=== PATIENT | female | born 1985 | race Hispanic/Latino ===

== ENCOUNTER 2018-12-04 12:28 | Emergency (ER) | payer BC, OTHER ==
--- OUTSIDE RECORDS SUMMARY | 2018-12-04 12:33 | XMS REPORT ---
:1985 Author Organization eClinicalWorks Care Team Providers Name Role Phone Jose Valencia Provider Role Unavailable Allergies, Adverse Reactions, Alerts Substance Reaction Event Type N.K.D.A. Info Not Available Non Drug Allergy Problems Problem Type Condition Code Onset Dates Condition Status Assessment Encounter for initial prescription Z30.011 Active of contraceptive pills Assessment Urinary tract infection without N39.0 Active hematuria, site unspecified Problem Encounter for initial prescription Z30.011 Active of contraceptive pills Medications Medication Code Code Instructions Start End Date Status Dosage System Date Bactrim DS [facility] 12227123256 800-160 MG December Active 1 tablet Orally Twice a 2017 day NDC 0 - (Dis) Orally Active not Vitamins defined DESM[place] ND 01510968084 3-0.02 MG Orally December Active 1 tablet Once a day 2017 [place] ND 30597300257 3-0.02 MG Orally December Active 1 tablet Once a day 2017 Labetalol HCl [facility] 09941023086 100 MG Orally Active 1 tablet Twice a day Results Name Result Date Reference Range Unit Abnormality Flag TEST URINE ----RESULTS Negative 20171230 URINALYSIS AUTO W/O SCOPE (07636) ----PROTEIN Negative 20171230 ----pH 7.0 20171230 ----NIT Positive 20171230 ----NAYLA Negative 20171230 ----URO 0.2 20171230 ----SPECIFIC GRAVITY 1.015 20171230 ----BLO Negative 20171230 ----BILIRUBIN Negative 20171230 ----KETONES Negative 20171230 ----GLUCOSE Negative 20171230 Summary Purpose eClinicalWorks Submission
[2018-12-04] MEDS ORDERED: ONDANSETRON 4 MG/2 ML VIAL ONE (13:09)
[2018-12-04 13:19] LABS: Absolute Lymphocytes (CBC) 1.4 K/uL (0.7-4.9); Absolute Monocytes 0.4 K/uL (0.1-1.3); Absolute Neutrophil 9.8 K/uL (1.8-8.0); Basophils % 0.1 % (0-1.3); Eosinophils % 0.4 % (0-4.4); Hematocrit 47.6 % (36.0-45.0); Lymphocytes % 12.1 % (15.3-44.8); MPV 8.6 fL (7.6-11.3); Monocytes % 3.5 % (3.3-12.3)
[2018-12-04 13:30] LABS: Albumin 4.5 g/dL (3.4-5.0); Bilirubin Direct 0.2 mg/dL (0-0.2); Bilirubin Total 0.6 mg/dL (0.2-1.0); Potassium 3.3 mmol/L (3.5-5.1); Protein, Total 8.8 g/dL (6.4-8.2)
[2018-12-04] MEDS ORDERED: HALOPERIDOL LACT 5 MG/ML INJ ONE (13:42)
[2018-12-04] MEDS ORDERED: DIPHENHYDRAMINE 50 MG/ML VIAL ONE (13:42)
--- NOTE | 2018-12-04 15:49 | RAD REPORT ---
EXAM DESCRIPTION: CT - Abdomen Pelvis W Contrast - 12/04/2018 3:39 pm CLINICAL HISTORY: Abdominal pain COMPARISON: None. TECHNIQUE: Biphasic, helical CT imaging of the abdomen and pelvis was performed following 100 ml non -ionic IV contrast. Oral contrast was given. All CT scans are performed using dose optimization technique as appropriate and may include automated exposure control or mA/KV adjustment according to patient size. FINDINGS: No suspicious findings in the lung bases. The liver, spleen, and pancreas show no suspicious findings. Fatty infiltration pattern is present. G allbladder size is normal. No biliary tree dilatation. Gallstones are suspected. Active gallbladder p rocess is not confirmed. Symmetric renal function is seen with no hydronephrosis or suspicious renal mass. No pyelonephritis o r acute parenchymal process. No bladder abnormalities. No adrenal abnormalities. No dilated bowel loops or bowel wall thickening. No free air, free fluid or inflammatory stranding. No hernia, mass or bulky lymphadenopathy. Ovaries show no suspicious findings. A 12 mm right ovarian cyst is present. Uterine size is normal. Heterogeneity along the posterior wall of the uterus is pro bably a 2.7 centimeter sized fibroid. No suspicious bony findings. IMPRESSION: Contrast enhanced CT abdomen and pelvis showing no acute finding. Probable cholelithiasis. An active gallbladder or biliary tree process is not suspected. Fatty infilt ration of the liver is present. Additional nonacute findings detailed in the body of the report.
--- NOTE | 2018-12-04 16:14 | ER ---
Nurse's Notes [facility] Name: Sindy Tan Age: 33 yrs Sex: Female : 1985 Arrival Date: 12/04/2018 Time: 12:31 Bed 24 Private MD: Cr Gray H Diagnosis: Nausea and vomiting;Other abdominal pain;Cholelithiasis Presentation: 12/04 12:41 Presenting complaint: Patient states: nausea/vomiting/diarrhea x 3 days ago. Pt c/o aa5 chronic back pain and upper abd burning. Transition of care: patient was not received from another setting of care. Onset of symptoms was November 2018. Risk Assessment: Do you want to hurt yourself or someone else? Patient reports no desire to harm self or others. Care prior to arrival: None. 12:41 Method Of Arrival: Wheelchair aa5 12:41 Acuity: MARIBEL 3 aa5 12:44 Initial Sepsis Screen: Does the patient meet any 2 criteria? No. Patient's initial ak1 sepsis screen is negative. Does the patient have a suspected source of infection? No. Patient's initial sepsis screen is negative. Triage Assessment: 12:45 General: Appears uncomfortable, Behavior is calm. ak1 13:49 GI: Reports upper abdominal pain, diarrhea, nausea, vomiting. 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 - Social history:: Smoking status: Patient/guardian denies using tobacco. - Ebola Screening: : No symptoms or risks identified at this time. Screenin:45 Abuse screen: Denies threats or abuse. Denies injuries from another. Nutritional ak1 screening: No deficits noted. Tuberculosis screening: No symptoms or risk factors identified. Fall Risk None identified. Assessment: 13:48 General: Appears in no apparent distress. comfortable, pt resting after medications. . ak1 Pain: Denies pain. Neuro: No deficits noted. Cardiovascular: No deficits noted. Respiratory: No deficits noted. GI: Abdomen is round. : No signs and/or symptoms were reported regarding the genitourinary system. EENT: No signs and/or symptoms were reported regarding the EENT system. Derm: No signs and/or symptoms reported regarding the dermatologic system. Musculoskeletal: No signs and/or symptoms reported regarding the musculoskeletal system. 14:27 Reassessment: Patient appears in no apparent distress at this time. pt resting with ak1 eyes closed, resp even and unlabored. no vomiting reported. will continue to monitor. Patient states symptoms have improved. Vital Signs: 12:42 BP 181 / 117; Pulse 68; Resp 18 S; Temp 98.3(TE); Pulse Ox 100% on R/A; Weight 77.11 kg aa5 (R); Height 5 ft. 2 in. (157.48 cm) (R); Pain 10/10; 13:47 BP 165 / 120; Pulse 67; Resp 16; Pulse Ox 98% on R/A; ak1 16:45 BP 171 / 114; Pulse 69; Resp 14; Pulse Ox 99% on R/A; ak1 12:42 Body Mass Index 31.09 (77.11 kg, 157.48 cm) aa5 ED Course: 12:31 Patient arrived in ED. mr 12:31 None, None is Private Physician. mr 12:32 Cr Gray DO is Private Physician. mr 12:41 Triage completed. aa5 12:41 Arm band placed on. aa5 12:44 Haylie Herrera, RN is Primary Nurse. ak1 12:45 Patient has correct armband on for positive identification. Bed in low position. Call ak1 light in reach. Side rails up X 1. Adult w/ patient. 12:47 Lucio Pedroza MD is Attending Physician. ps1 13:00 Initial lab(s) drawn, by oh, sent to lab. Inserted saline lock: 22 gauge in right jp3 antecubital area, using aseptic technique. Blood collected. 13:08 Warm blanket given. Pillow given. Pulse ox on. NIBP on. jp3 14:39 Radiology exam delayed due to test not completed at this time. sj 14:51 Radiology exam delayed due to test not completed at this time. sj 15:44 CT Abd/Pelvis - W/Contrast In Process Unspecified. EDMS 16:12 Cr Gray DO is Referral Physician. ps1 16:39 No provider procedures requiring assistance completed. ak1 16:45 IV discontinued, intact, bleeding controlled, No redness/swelling at site. ak1 Administered Medications: 13:00 Drug: Zofran 4 mg Route: IVP; Infused Over: 2 mins; Site: right antecubital; tl3 14:29 Follow up: Response: No adverse reaction ak1 13:35 Drug: HALdol 2.5 mg Route: IVP; Site: right antecubital; ak1 14:29 Follow up: Response: No adverse reaction; Anxiety decreased; Nausea is decreased ak1 13:35 Drug: Benadryl 25 mg Route: IVP; Site: right antecubital; ak1 14:30 Follow up: Response: Pain is decreased; Anxiety decreased; Nausea is decreased ak1 Outcome: 16:13 Discharge ordered by MD. ps1 16:39 Discharged to home via wheelchair, with family. ak1 16:39 Condition: good 16:39 Discharge instructions given to patient, family, Instructed on discharge instructions, follow up and referral plans. no drinking with medication, no driving heavy equipment, medication usage, Demonstrated understanding of instructions, follow-up care, medications, Prescriptions given X 2. 16:46 Patient left the ED. ak1 Signatures: Dispatcher [employer] CITLALLIPA Lakeisha Peralta ReidDarlene Audri, RN RN aa5 Haylie Herrera RN RN ak1 Lucio Pedroza MD MD ps1 Ysabel Gross RN RN tl3 Kailash Lee jp3
--- NOTE | 2018-12-04 16:15 | EDPHYS ---
Physician Documentation [facility] Name: Sindy Tan Age: 33 yrs Sex: Female : 1985 Arrival Date: 12/04/2018 Time: 12:31 Bed 24 Private MD: Cr Gray H ED Physician Lucio Pedroza HPI: 12/04 13:10 This 33 yrs old Female presents to ER via Wheelchair with complaints of ps1 Vomiting/Diarrhea. 13:10 patient was drinking alcohol the other night and taking her gabapentin. She then ps1 started having intractable vomiting and now complaining of abdominal pain localized to epigastrium and RUQ. Pain rated as moderate. Still vomiting. No remitting factors. Worse with food. . 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 - Social history:: Smoking status: Patient/guardian denies using tobacco. - Ebola Screening: : No symptoms or risks identified at this time. ROS: 13:10 Constitutional: Negative for fever, chills, and weight loss, Eyes: Negative for injury, ps1 pain, redness, and discharge, Cardiovascular: Negative for chest pain, palpitations, and edema, Respiratory: Negative for shortness of breath, cough, wheezing, and pleuritic chest pain, MS/Extremity: Negative for injury and deformity, Skin: Negative for injury, rash, and discoloration, Neuro: Negative for headache, weakness, numbness, tingling, and seizure. 13:10 Abdomen/GI: Positive for abdominal pain, nausea and vomiting. Exam: 13:10 Constitutional: This is a well developed, well nourished patient who is awake, alert, ps1 and in no acute distress. Head/Face: Normocephalic, atraumatic. Eyes: Pupils equal round and reactive to light, extra-ocular motions intact. Lids and lashes normal. Conjunctiva and sclera are non-icteric and not injected. Chest/axilla: Normal chest wall appearance and motion. Nontender with no deformity. No lesions are appreciated. Cardiovascular: Regular rate and rhythm. No gallops, murmurs, or rubs. Normal PMI, no JVD. No pulse deficits. Respiratory: Lungs have equal breath sounds bilaterally, clear to auscultation and percussion. No rales, rhonchi or wheezes noted. No increased work of breathing, no retractions or nasal flaring. Skin: Warm, dry with normal turgor. Normal color with no rashes, no lesions, and no evidence of cellulitis. MS/ Extremity: Pulses equal, no cyanosis. Neurovascular intact. Full, normal range of motion. 13:10 Abdomen/GI: Inspection: abdomen appears normal, scar(s), are noted in the umbilical area, right lower quadrant and left lower quadrant, Bowel sounds: normal, Palpation: mild abdominal tenderness, in the epigastric area and right upper quadrant. Vital Signs: 12:42 BP 181 / 117; Pulse 68; Resp 18 S; Temp 98.3(TE); Pulse Ox 100% on R/A; Weight 77.11 kg aa5 (R); Height 5 ft. 2 in. (157.48 cm) (R); Pain 10/10; 13:47 BP 165 / 120; Pulse 67; Resp 16; Pulse Ox 98% on R/A; ak1 16:45 BP 171 / 114; Pulse 69; Resp 14; Pulse Ox 99% on R/A; ak1 12:42 Body Mass Index 31.09 (77.11 kg, 157.48 cm) aa5 MDM: 12:59 Patient medically screened. [facility], [place] 12/04 12:48 Order name: Basic Metabolic Panel; Complete Time: 13:33 ps1 12/04 12:48 Order name: CBC with Diff; Complete Time: 13: ps1 12/04 12:48 Order name: Creatinine for Radiology; Complete Time: : ps1 12/04 12:48 Order name: Hepatic Function; Complete Time: 13: ps1 12/04 12:48 Order name: Lipase; Complete Time: 13: ps1 12/04 14:55 Order name: Test, Serum; Complete Time: 15:38 ak1 12/04 12:48 Order name: IV Saline Lock; Complete Time: 13: ps1 12/04 12:48 Order name: Labs collected and sent; Complete Time: 13: ps1 12/04 14:36 Order name: CT Abd/Pelvis - W/Contrast; Complete Time: 16:10 ps1 Administered Medications: 13:00 Drug: Zofran 4 mg Route: IVP; Infused Over: 2 mins; Site: right antecubital; tl3 14:29 Follow up: Response: No adverse reaction ak1 13:35 Drug: HALdol 2.5 mg Route: IVP; Site: right antecubital; ak1 14:29 Follow up: Response: No adverse reaction; Anxiety decreased; Nausea is decreased ak1 13:35 Drug: Benadryl 25 mg Route: IVP; Site: right antecubital; ak1 14:30 Follow up: Response: Pain is decreased; Anxiety decreased; Nausea is decreased ak1 Disposition: 12/04/18 16:13 Discharged to Home. Impression: Nausea and vomiting, Other abdominal pain, Cholelithiasis. - Condition is Stable. - Discharge Instructions: Cholelithiasis. - Prescriptions for Bentyl 10 mg Oral Capsule - take 1 capsule by ORAL route every 6 hours As needed; 40 capsule. Zofran 4 mg Oral Tablet - take 1 tablet by ORAL route every 12 hours As needed; 20 tablet. - Medication Reconciliation Form, Thank You Letter, Antibiotic Education, Prescription Opioid Use form. - Follow up: Cr Gray DO; When: As needed; Reason: Further diagnostic work-up, Recheck today's complaints, Continuance of care, Re-evaluation by your physician. Follow up: Emergency Department; When: As needed; Reason: Fever > 102 F, Worsening of condition. - Problem is new. - Symptoms have improved. Signatures: Dispatcher [employer] EDMS Selena Cross, RN RN aa5 Haylie Herrera RN RN ak1 Lucio Pedroza MD MD ps1 Ysabel Gross, ANDREW RN tl3 Corrections: (The following items were deleted from the chart) 16:46 16:13 12/04/2018 16:13 Discharged to Home. Impression: Nausea and vomiting; Other ak1 abdominal pain; Cholelithiasis. Condition is Stable. Forms are Medication Reconciliation Form, Thank You Letter, Antibiotic Education, Prescription Opioid Use. Follow up: Cr Gray; When: As needed; Reason: Further diagnostic work-up, Recheck today's complaints, Continuance of care, Re-evaluation by your physician. Follow up: Emergency Department; When: As needed; Reason: Fever > 102 F, Worsening of condition. Problem is new. Symptoms have improved. ps1
[2018-12-04 16:54] VITALS: TEMP 98.3
[2018-12-04 16:57] VITALS: BP 171/114; O2SAT 99
== END 2018-12-04 16:46 | disposition home or self-care (01) ==
LOC: ER 12:28
DX: R10.9 Unspecified abdominal pain (principal)
CPT/HCPCS: 36415; 74177; 80048; 80076; 83690; 84703; 85025; 96374; 96375; 99284; J1630; J2405; Q9967

== ENCOUNTER 2018-12-17 07:29 | Day surgery (SDC) | payer BC ==
[2018-12-16 11:10] LABS: Absolute Lymphocytes (CBC) 1.6 K/uL (0.7-4.9); Absolute Monocytes 0.8 K/uL (0.1-1.3); Absolute Neutrophil 8.2 K/uL (1.8-8.0); Basophils % 0.5 % (0-1.3); Eosinophils % 1.6 % (0-4.4); Hematocrit 42.5 % (36.0-45.0); Lymphocytes % 14.9 % (15.3-44.8); MPV 9.7 fL (7.6-11.3); Monocytes % 7.2 % (3.3-12.3); RBC Red Blood Cell Count 4.81 M/uL (3.86-4.86)
[2018-12-16 11:27] LABS: BUN Blood Urea Nitrogen 6 mg/dL (7-18); Bicarbonate 28 mmol/L (21-32); Glucose Level 94 mg/dL (74-106); Potassium 3.7 mmol/L (3.5-5.1); Sodium Level 141 mmol/L (136-145)
[2018-12-16 11:30] LABS: Bilirubin Direct 0.1 mg/dL (0-0.2); Bilirubin Total 0.4 mg/dL (0.2-1.0); Protein, Total 7.6 g/dL (6.4-8.2)
--- OUTSIDE RECORDS SUMMARY | 2018-12-17 07:31 | XMS REPORT ---
[...] Date Status Dosage System Date Bactrim DS [facility] [id number] 800-160 MG December Active 1 tablet Orally Twice a 2017 day NDC 0 - (Dis) Orally Active not Vitamins defined [place] ND 58984224056 3-0.02 MG Orally December Active 1 tablet Once a day 2017 [place] ND 29202251218 3-0.02 MG Orally December Active 1 tablet Once a day 2017 Labetalol HCl [facility] 21902221803 100 MG Orally Active 1 tablet Twice a day Results Name Result Date Reference Range Unit Abnormality Flag TEST URINE ----RESULTS Negative 20171230 URINALYSIS AUTO W/O SCOPE (03335) ----PROTEIN Negative 20171230 ----pH 7.0 20171230 ----NIT Positive 20171230 ----NAYLA Negative 20171230 ----URO 0.2 20171230 ----SPECIFIC GRAVITY 1.015 20171230 ----BLO Negative 20171230 ----BILIRUBIN Negative 20171230 ----KETONES Negative 20171230 ----GLUCOSE Negative 20171230 Summary Purpose eClinicalWorks Submission
[2018-12-17] MEDS ORDERED: Ringers Lactate 1,000 ML IV ONE ×2 (08:21→10:56)
[2018-12-17] MEDS ORDERED: CIPROFLOXACIN 400mg IV 400 MG/200 ML BAG IV ONE (08:36)
[2018-12-17] MEDS ORDERED: PROPOFOL 200 MG/20 ML VIAL IV ONE (09:24)
[2018-12-17] MEDS ORDERED: ROCURONIUM 50 MG/5 ML VIAL IV ONE (09:25)
[2018-12-17] MEDS ORDERED: BUPIVACAINE 0.5% PF 10 ML VIAL ONE (09:26)
[2018-12-17] MEDS ORDERED: GLYCOPYRROLATE 0.2 MG/ML SYR ONE (09:26)
[2018-12-17] MEDS ORDERED: FENTANYL CITR 250 MCG/5 ML ONE (09:27)
[2018-12-17] MEDS ORDERED: LIDOCAINE 2% MPF 5 ML VIAL ONE (09:27)
[2018-12-17] MEDS ORDERED: MIDAZOLAM HCL 2 MG/2 ML INJ ONE (09:28)
[2018-12-17] MEDS ORDERED: NEOSTIGMINE 1 MG/ML -10 ML VIAL ONE (09:38)
[2018-12-17] MEDS ORDERED: ONDANSETRON 4 MG/2 ML VIAL ONE (09:38)
--- NOTE | 2018-12-17 10:30 | P.BOP ---
Preoperative diagnosis: acute cholecystitis, symptomatic cholelithiasis, pancreatitis Postoperative diagnosis: same Primary procedure: Laparoscopic cholecystectomy Learning Specialist: ADRIANNA DURHAM (DUTY OFFICER) Estimated blood loss: <10cc Specimen: gb Findings: as above Anesthesia: General Complications: None Transferred to: Recovery Room Condition: Good
[2018-12-17] MEDS: FENTANYL CITR 100 MCG/2 ML ONE ×5 (10:45→11:15)
[2018-12-17] MEDS ORDERED: MEPERIDINE HCL 25 MG/0.5 ML ONE (11:15)
[2018-12-17] MEDS ORDERED: FENTANYL CITR 100 MCG/2 ML ONE (11:25)
[2018-12-17] MEDS ORDERED: HYDROCODONE/APAP 10/325 TAB ONE (12:00)
[2018-12-17 14:15] VITALS: BP 130/82; TEMP 98.2; O2SAT 99
--- NOTE | 2018-12-17 18:20 | OP ---
Date of Procedure: 12/17/2018 Surgeon: Daniel Sage MD Melter Caster: ROMEL Hernandez. Preoperative Diagnoses: Acute cholecystitis, symptomatic cholelithiasis, pancreatitis. Postoperative Diagnoses: Acute cholecystitis, symptomatic cholelithiasis, pancreatitis. Procedure: Laparoscopic cholecystectomy. Specimen: Gallbladder. Anesthesia: General plus local. Indications: This is a case of a 33-year-old patient with acute cholecystitis, symptomatic cholelith iasis symptoms. Very mild pancreatitis at 1 point. Patient had workup. Found to have acute cholecy stitis. Patient had abdominal ultrasound. Had a CT scan of abdomen and pelvis showing cholelithiasi s and the biliary tree seems to be normal in caliber as per Dr. Banks. The patient was fully expla ined the need for laparoscopic, possible open cholecystectomy with benefits, alternatives, and risks including, but not limited to infection, bleeding, damage to adjacent structures, anesthesia complica tion, common bile duct injury, choledocholithiasis, pancreatitis, [place] and even . She also unders tands this may not relieve her symptoms. She might need more than one surgical intervention. She un derstood and signed a consent. Description Of Procedure: The patient was brought to the operating room and placed in supine positio n. Anesthesia was done without complication. Abdominal area was prepped and draped in usual sterile fashion. A time-out was called. An incision was made on the infraumbilical region after injecting local anesthetic. Incision was carried down to fascia, which was opened under direct vision. Perito neum was encountered, opened under direct vision. Vicryl #1 placed inside the fascia. Kin trocar was carefully introduced. No bleeding was obtained. I placed 3 more trocars in the right upper beth drant under direct visualization. This allowed me to put a grasper in the fundus of the gallbladder, remove some adhesions from the gallbladder and another grasper in the infundibulum, to pull the gall bladder in inferolateral fashion exposing triangle of Calot, and obtaining critical view of safety. Cystic duct and cystic artery were clearly isolated free circumferentially and a connection between t hose and the gallbladder were clearly identified. I proceeded to ligate those with at least 3 clips proximal, 1 clip distal, ligation in middle. Same was done with the cystic artery. No bile leak. N o bleeding. The gallbladder was removed from liver using Bovie cauterizer and removed from abdominal cavity using an EndoCatch through the umbilical incision. Area was inspected once again. The clips were intact. No bile leak. No bleeding. Gallbladder fossa was intact. At that moment, I proceede d to remove the trocar under direct vision. Deflated the pneumoperitoneum. Closed the fascia with # 1 Vicryl. Irrigated the subcu tissue, closed that with 3-0 chromic and skin in subcuticular fashion with 3-0 chromic and Steri-Strips on top. Sponge count and instrument counts were correct. The larissa ent tolerated the procedure well. The patient was sent to recovery in stable condition. Disposition: Home. Activity: As tolerated. No heavy lifting Followup: Follow up in my office in 1 week. Call for appointment [phone]. Keep the area dry for 48 hours, then may shower. Keep Steri-Strips intact. Medications: Include Tylenol No. 3 q.4 hours p.r.n. pain, Bactrim DS p.o. b.i.d. JUSTINO/BOLIVAR Voice ID: [id number] Report ID: [id number]
== END 2018-12-17 14:17 | disposition home or self-care (01) ==
LOC: OR 07:29
PROVIDERS: ATTEND Surgery
PROC: 0FT44ZZ Resection of Gallbladder, Percutaneous Endoscopic Approach (ICD-10-PCS; principal; 2018-12-17 09:30)
DX: K80.10 Calculus of gallbladder with chronic cholecystitis without obstruction (principal); K85.90 Acute pancreatitis without necrosis or infection, unspecified
CPT/HCPCS: 36415; 80048; 80076; 81025; 82150; 83690; 85025; 88304; J0744; J2175; J2250; J2405; J2704; J2710; J3010

== ENCOUNTER 2018-12-17 18:49 | Observation (INO) | payer BC ==
--- OUTSIDE RECORDS SUMMARY | 2018-12-17 18:51 | XMS REPORT ---
[...] Date Status Dosage System Date Bactrim DS [facility] [id number] 800-160 MG December Active 1 tablet Orally Twice a 2017 day NDC 0 - (Dis) Orally Active not Vitamins defined [place]ESMOND ND 00021076465 3-0.02 MG Orally December Active 1 tablet Once a day 2017 [place] ND 07543741409 3-0.02 MG Orally December Active 1 tablet Once a day 2017 Labetalol HCl [facility] 65036137011 100 MG Orally Active 1 tablet Twice a day Results Name Result Date Reference Range Unit Abnormality Flag TEST URINE ----RESULTS Negative 20171230 URINALYSIS AUTO W/O SCOPE (21374) ----PROTEIN Negative 20171230 ----pH 7.0 20171230 ----NIT Positive 20171230 ----NAYLA Negative 20171230 ----URO 0.2 20171230 ----SPECIFIC GRAVITY 1.015 20171230 ----BLO Negative 20171230 ----BILIRUBIN Negative 20171230 ----KETONES Negative 20171230 ----GLUCOSE Negative 20171230 Summary Purpose eClinicalWorks Submission
[2018-12-17] MEDS ORDERED: ONDANSETRON 4 MG/2 ML VIAL ONE (19:19)
[2018-12-17] MEDS ORDERED: NA CHLORIDE 0.9% 1,000 ML ONE (19:20)
[2018-12-17] MEDS ORDERED: MORPHINE 4 MG/ML SYR ONE ×2 (19:40→20:14)
[2018-12-17 20:10] LABS: Absolute Lymphocytes (CBC) 1.2 K/uL (0.7-4.9); Absolute Monocytes 0.4 K/uL (0.1-1.3); Absolute Neutrophil 16.4 K/uL (1.8-8.0); Basophils % 0.2 % (0-1.3); Eosinophils % 0.1 % (0-4.4); Hematocrit 38.9 % (36.0-45.0); Lymphocytes % 6.4 % (15.3-44.8); MPV 9.6 fL (7.6-11.3); Monocytes % 2.3 % (3.3-12.3); RBC Red Blood Cell Count 4.36 M/uL (3.86-4.86)
[2018-12-17] MEDS ORDERED: LORazepam 2 MG/ML VIAL ONE (20:13)
[2018-12-17 20:25] LABS: ALT/SGPT 61 U/L (12-78); AST/SGOT 25 U/L (15-37); Albumin 3.8 g/dL (3.4-5.0); Alkaline Phosphatase 60 U/L (45-117); BUN Blood Urea Nitrogen 4 mg/dL (7-18); Bicarbonate 25 mmol/L (21-32); Bilirubin Total 0.4 mg/dL (0.2-1.0); Glucose Level 132 mg/dL (74-106); Potassium 3.8 mmol/L (3.5-5.1); Protein, Total 7.3 g/dL (6.4-8.2); Sodium Level 138 mmol/L (136-145)
[2018-12-17 20:54] LABS: Blood Morphology Comment NOT SEEN (NOT SEEN); Platelet Estimate ADEQ; Urine White Blood Cell Casts OK
--- NOTE | 2018-12-17 22:04 | ER ---
Nurse's Notes [facility] Name: Sindy Tan Age: 33 yrs Sex: Female : 1985 Arrival Date: 12/17/2018 Time: 18:49 Bed 20 Private MD: Diagnosis: abdominal pain;post operative complication Presentation: 12/17 18:54 Presenting complaint: states: they removed her gallbladder this morning, and tw2 they have been calling the doctor it has been that way since she got home they even called in a sublingual to help her. Transition of care: patient was not received from another setting of care. Onset of symptoms was December 17, 2018. Risk Assessment: Do you want to hurt yourself or someone else? Patient reports no desire to harm self or others. Initial Sepsis Screen: Does the patient meet any 2 criteria? No. Patient's initial sepsis screen is negative. Does the patient have a suspected source of infection? No. Patient's initial sepsis screen is negative. Care prior to arrival: None. 18:54 Method Of Arrival: Wheelchair tw2 18:54 Acuity: MARIBEL 3 tw2 Triage Assessment: 18:55 General: Appears uncomfortable, Behavior is crying. Pain: Complains of pain in abdomen. tw2 GI: Reports lower abdominal pain, upper abdominal pain, intolerance of fluids, intolerance of food, nausea, vomiting. 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 - Social history:: Smoking status: . - Ebola Screening: : Patient denies travel to an Ebola-affected area in the 21 days before illness onset. Screenin:38 Abuse screen: Denies threats or abuse. Denies injuries from another. Nutritional ls4 screening: No deficits noted. Tuberculosis screening: No symptoms or risk factors identified. Fall Risk None identified. Assessment: 19:33 General: Appears distressed, uncomfortable, PT RECEIVED FROM WAITING AREA ACTIVELY ls4 VOMITTING. IV STARTED, ZOFRAN AND BOLUS GIVEN. . Neuro: No deficits noted. Cardiovascular: Denies chest pain. GI: Abdomen is non-distended, obese, Pt is actively vomiting clear fluid, PT HAD SURGERY FOR GALL BLADDER TODAY. PT STATES THAT SHE HAS LOST WEIGHT AND HAD FREQUENT VOMITING PRIOR TO SURGERY. Derm: DRESSED SURGICAL SITES X 4 TO ABDOMEN CLEAN DRY AND INTACT. Musculoskeletal: No deficits noted. 21:36 Reassessment: Patient and/or family updated on plan of care and expected duration. Pain ls4 level reassessed. Patient is alert, oriented x 3, equal unlabored respirations, skin warm/dry/pink. Patient states symptoms have improved. 21:41 Reassessment: Patient and/or family updated on plan of care and expected duration. Pain ls4 level reassessed. Patient states symptoms have improved. pt ambulated to bathroom. . 22:42 General: Appears in no apparent distress. Behavior is calm, cooperative, appropriate ea for age. General: Pt reports pain has decreased, denies nausea at this time. Neuro: Level of Consciousness is awake, alert, obeys commands, Oriented to person, place, time. Cardiovascular: Patient's skin is warm and dry. Respiratory: Airway is patent Respiratory effort is even, unlabored, Respiratory pattern is regular, symmetrical. 23:20 Reassessment: Patient and/or family updated on plan of care and expected duration. Pain ea level reassessed. Patient is alert, oriented x 3, equal unlabored respirations, skin warm/dry/pink. Pt blood pressure noted at 180/ 125 provider notified, no new orders obtained at this time. Provider gave the OK to move pt upstairs. Pt denies chest pain or headache. 12/18 00:04 Reassessment: Patient and/or family updated on plan of care and expected duration. Pain ea level reassessed. Patient is alert, oriented x 3, equal unlabored respirations, skin warm/dry/pink. Report called to Castillo MORALES on second floor. Pt denies pain at this time. Reports she feels a little better. Vital Signs: 12/17 18:55 BP 153 / 113; Pulse 88; Resp 17; Temp 98.3(O); Pulse Ox 100% on R/A; Pain 10/10; tw2 21:35 BP 156 / 108; Pulse 87; Resp 16; Temp 98.4; Pulse Ox 99% on R/A; Pain 3/10; ls4 22:55 BP 177 / 108; Pulse 71; Resp 18; Temp 97.6(TE); Pulse Ox 99% on R/A; ea 23:45 BP 160 / 105; Pulse 73; Resp 18; Pulse Ox 100% ; ea ED Course: 18:49 Patient arrived in ED. ds1 18:55 Triage completed. tw2 18:55 Arm band placed on. tw2 19:19 Lucio Pedroza MD is Attending Physician. ps1 19:25 Karina Soni RN is Primary Nurse. ls4 20:00 Patient has correct armband on for positive identification. Placed in gown. Bed in low ls4 position. Call light in reach. Side rails up X 1. hall monitor on. Pulse ox on. NIBP on. 20:00 Initial lab(s) drawn, by me, sent to lab. Inserted saline lock: 20 gauge in right ls4 antecubital area, using aseptic technique. Blood collected. 21:[address] jg6 21:33 CT completed. Patient tolerated procedure well. Patient moved back from CT. vm2 21:43 CT Abd/Pelvis - W/Contrast In Process Unspecified. EDMS 21:43 No provider procedures requiring assistance completed. ls4 22:02 Diet: Patient given ice chips. Tolerated well. ls4 22:03 Daniel Sage MD is Hospitalizing Provider. ps1 22:45 Patient admitted, IV remains in place. ea Administered Medications: 19:15 Drug: Zofran 4 mg Route: IVP; Site: right antecubital; ls4 19:50 Follow up: Response: No adverse reaction; Marked relief of symptoms cc3 19:27 Drug: NS 0.9% 1000 ml Route: IV; Rate: 1 bolus; Site: right antecubital; ls4 20:19 Follow up: IV Status: Completed infusion; IV Intake: 1000ml cc3 19:32 CANCELLED (Duplicate Order): morphine 1 mg IVP once ls4 19:33 Drug: morphine 4 mg Route: IVP; Site: right antecubital; ls4 20:16 Follow up: Response: No adverse reaction; Pain is unchanged, physician notified cc3 20:17 Drug: Ativan 0.5 mg Route: IVP; Site: right antecubital; cc3 22:00 Follow up: Response: No adverse reaction; Marked relief of symptoms ea 20:18 Drug: morphine 4 mg Route: IVP; Site: right antecubital; cc3 22:00 Follow up: Response: No adverse reaction; Pain is decreased ea 22:24 Drug: Rocephin - (cefTRIAXone) 1 grams Route: IVPB; Infused Over: 30 mins; Site: right ea antecubital; 23:13 Follow up: Response: No adverse reaction; IV Status: Completed infusion ea Intake: 20:19 IV: 1000ml; Total: 1000ml. cc3 Outcome: 22:04 Decision to Hospitalize by Provider. ps1 22:45 Instructed on the need for admit. ea 23:50 Admitted to Med/surg accompanied by tech, room 231, Report called to Castillo MORALES ea 23:50 Condition: stable 12/18 00:20 Patient left the ED. ea Signatures: Dispatcher [employer] EDOH Jaylyn Castillo ds1 Elaine Barbosa, RN RN tw2 Sharda Alves 2 Earlene Kraft RN Lucio Reddy ea, MD MD ps1 Cordel, Charlene cc3 Xenia Carr Karina Soni RN RN ls4 Corrections: (The following items were deleted from the chart) 12/17 21:43 18:56 Home Meds: gabapentin Oral; 2 ls4 21:43 18:56 PMHx: chronic back pain; 2 ls4 21:43 18:56 PSHx: ; 2 ls4 21:43 18:56 PSHx: Cholecystectomy(December 17, 2018); 2 ls4
--- NOTE | 2018-12-17 22:05 | EDPHYS ---
Physician Documentation [facility] Name: Sindy Tan Age: 33 yrs Sex: Female : 1985 Arrival Date: 12/17/2018 Time: 18:49 Bed 20 Private MD: ED Physician Lucio Pedroza HPI: 12/17 19:37 This 33 yrs old Female presents to ER via Wheelchair with complaints of Post ps1 Surgical Pain, Vomiting. 19:37 patient had laprascopic cholecystectomy per Chu today. Patient is c/o post ps1 surgical pain. Was prescribed T3 and made her vomit. Now not able to hold down medications. Pain rated as moderate and without remission. Called Chu and reportedly was called in [facility]. No fever. . 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 - Social history:: Smoking status: . - Ebola Screening: : Patient denies travel to an Ebola-affected area in the 21 days before illness onset. ROS: 19:37 Constitutional: Negative for fever, chills, and weight loss, Eyes: Negative for injury, ps1 pain, redness, and discharge, ENT: Negative for injury, pain, and discharge, Cardiovascular: Negative for chest pain, palpitations, and edema, Respiratory: Negative for shortness of breath, cough, wheezing, and pleuritic chest pain, MS/Extremity: Negative for injury and deformity, Skin: Negative for injury, rash, and discoloration, Neuro: Negative for headache, weakness, numbness, tingling, and seizure. 19:37 Abdomen/GI: Positive for abdominal pain, nausea and vomiting. Exam: 19:37 Constitutional: This is a well developed, well nourished patient who is awake, alert, ps1 and in no acute distress. Head/Face: Normocephalic, atraumatic. Eyes: Pupils equal round and reactive to light, extra-ocular motions intact. Lids and lashes normal. Conjunctiva and sclera are non-icteric and not injected. Chest/axilla: Normal chest wall appearance and motion. Nontender with no deformity. No lesions are appreciated. Cardiovascular: Regular rate and rhythm. No gallops, murmurs, or rubs. Normal PMI, no JVD. No pulse deficits. Respiratory: Lungs have equal breath sounds bilaterally, clear to auscultation and percussion. No rales, rhonchi or wheezes noted. No increased work of breathing, no retractions or nasal flaring. Skin: Warm, dry with normal turgor. Normal color with no rashes, no lesions, and no evidence of cellulitis. MS/ Extremity: Pulses equal, no cyanosis. Neurovascular intact. Full, normal range of motion. Neuro: Awake and alert, GCS 15, oriented to person, place, time, and situation. Cranial nerves II-XII grossly intact. Sensory grossly intact. Psych: Awake, alert, with orientation to person, place and time. Behavior, mood, and affect are within normal limits. 19:37 Abdomen/GI: Abd soft. Tenderness present in surgical sites. Appear CDI. BS+ . Vital Signs: 18:55 BP 153 / 113; Pulse 88; Resp 17; Temp 98.3(O); Pulse Ox 100% on R/A; Pain 10/10; tw2 21:35 BP 156 / 108; Pulse 87; Resp 16; Temp 98.4; Pulse Ox 99% on R/A; Pain 3/10; ls4 22:55 BP 177 / 108; Pulse 71; Resp 18; Temp 97.6(TE); Pulse Ox 99% on R/A; ea 23:45 BP 160 / 105; Pulse 73; Resp 18; Pulse Ox 100% ; ea MDM: 19:52 Patient medically screened. ps1 12/17 19:36 Order name: CBC with Diff; Complete Time: 21:11 ps1 12/17 19:36 Order name: CMP; Complete Time: 20:30 ps1 12/17 19:36 Order name: Lactate; Complete Time: 20:39 ps1 12/17 20:54 Order name: CBC Smear Scan; Complete Time: 21:11 EDMS 12/17 22:43 Order name: CBC with Automated Diff EDMS 12/17 22:43 Order name: CBC with Automated Diff EDMS 12/17 21:13 Order name: CT Abd/Pelvis - W/Contrast ps1 12/17 22:43 Order name: CONS Pharmacy Consult EDMS 12/17 22:43 Order name: NPO EDMS Administered Medications: 19:15 Drug: Zofran 4 mg Route: IVP; Site: right antecubital; ls4 19:50 Follow up: Response: No adverse reaction; Marked relief of symptoms cc3 19:27 Drug: NS 0.9% 1000 ml Route: IV; Rate: 1 bolus; Site: right antecubital; ls4 20:19 Follow up: IV Status: Completed infusion; IV Intake: 1000ml cc3 19:32 CANCELLED (Duplicate Order): morphine 1 mg IVP once ls4 19:33 Drug: morphine 4 mg Route: IVP; Site: right antecubital; ls4 20:16 Follow up: Response: No adverse reaction; Pain is unchanged, physician notified cc3 20:17 Drug: Ativan 0.5 mg Route: IVP; Site: right antecubital; cc3 22:00 Follow up: Response: No adverse reaction; Marked relief of symptoms ea 20:18 Drug: morphine 4 mg Route: IVP; Site: right antecubital; cc3 22:00 Follow up: Response: No adverse reaction; Pain is decreased ea 22:24 Drug: Rocephin - (cefTRIAXone) 1 grams Route: IVPB; Infused Over: 30 mins; Site: right ea antecubital; 23:13 Follow up: Response: No adverse reaction; IV Status: Completed infusion ea Disposition: 12/17/18 22:04 Hospitalization ordered by Daniel Sage for Observation. Preliminary diagnosis are abdominal pain, post operative complication. - Bed requested for Telemetry/MedSurg (observation). - Status is Observation. ea - Condition is Fair. - Problem is new. - Symptoms are unchanged. UTI on Admission? No Signatures: Dispatcher [employer] EDSC Jenny Carr, RN RN Elaine Barbosa RN RN tw2 Earlene Kraft RN Lucio Reddy ea, MD MD ps1 Cordel, Charlene cc3 Karina Soni RN RN ls4 Corrections: (The following items were deleted from the chart) 19:32 19:32 morphine 1 mg IVP once ordered. ls4 ls4 21:43 18:56 Home Meds: gabapentin Oral; tw2 ls4 21:43 18:56 PMHx: chronic back pain; tw2 ls4 21:43 18:56 PSHx: ; 2 ls4 21:43 18:56 PSHx: Cholecystectomy(December 17, 2018); 2 ls4 22:55 22:04 Hospitalization Ordered by Daneil Sage MD for Observation. Preliminary cg diagnosis is abdominal pain; post operative complication. Bed requested for Telemetry/MedSurg (observation). Status is Observation. Condition is Fair. Problem is new. Symptoms are unchanged. UTI on Admission? No. ps1 12/18 00:20 12/17 22:55 12/17/2018 22:04 Hospitalization Ordered by Daniel Sage MD for ea Observation. Preliminary diagnosis is abdominal pain; post operative complication. Bed requested for Telemetry/MedSurg (observation). Status is Observation. Condition is Fair. Problem is new. Symptoms are unchanged. UTI on Admission? No. cg
[2018-12-17] MEDS ORDERED: CEFTRIAXONE/SWI 1gm 1 GM/10 ML SYR ONE (22:26)
[2018-12-18] MEDS: NA CHLORIDE 0.9% 1,000 ML IV SCH ×2 (00:31→08:21)
[2018-12-18 00:37] VITALS: BMI 33.4
[2018-12-18] MEDS: MORPHINE 4 MG/ML SYR IV PRN ×5 (00:48→13:53)
[2018-12-18] MEDS: ONDANSETRON 4 MG/2 ML VIAL IV PRN ×3 (00:49→10:36)
[2018-12-18 02:12] VITALS: O2SAT 98
[2018-12-18] MEDS ORDERED: HYDRALAZINE HCL 20 MG/ML VIAL IV PRN (06:04)
--- NOTE | 2018-12-18 06:20 | P.CNS ---
Date of Consult: 12/18/18 Reason for Consult: HTN Requesting Physician: Daniel Sage Chief Complaint: abdominal pain, HTN History of Present Illness: Ms Tan is a 33 years old woman who had cholecystectomy done on 12/17/18 due to cholecystitis, pancreatitis and symptomatic cholelithiasis. After the patient was discharged home, she was very nauseated and had several vomiting episodes. Subsequently she start having severe abdominal wall pain. She came to ED for evaluation. CT abd/pelvis revealed abdominal wall hematoma. She was admitted again for symptoms control. During her stay in the hospital it was noticed that her BP was consistently elevated (max 187/118). The patient states that she had hypertension and pre-eclampsia. She was managed with labetalol. However, since her BP normalized after 1 month of delivery, the medication was discontinued. She also states that every time she has severe pain , her BP increases. She denied chest pain or SOB. Allergies No Known Allergies Allergy (Verified 12/18/18 00:47) Home medications list reviewed: Yes Home Medications: Gabapentin [Neurontin*] 100 mg PO BID 12/16/18 Codeine/APAP [Tylenol #3*] 1 tab PO Q6HP PRN #30 tab 12/17/18 - Past Medical/Surgical History Diabetic: No -: Chronic back pain -: pre-eclampsia -: hypertension -: lap janene -: c- section - Social History Smoking Status: Former smoker Alcohol use: No CD- Drugs: Yes Caffeine use: No Place of Residence: Home Review of Systems 10-point ROS is otherwise unremarkable Physical Examination Temp Pulse Resp BP Pulse Ox 98.6 F 74 18 180/101 H 98 12/18/18 04:00 12/18/18 04:00 12/18/18 04:00 12/18/18 04:00 12/18/18 04:00 General: Alert, In no apparent distress HEENT: Atraumatic, PERRLA, Mucous membr. moist/pink, EOMI, Sclerae nonicteric Neck: Supple, 2+ carotid pulse no bruit, No LAD, Without JVD or thyroid abnormality Respiratory: Clear to auscultation bilaterally, Normal air movement Cardiovascular: Regular rate/rhythm, Normal S1 S2 Gastrointestinal: Normal bowel sounds, Tenderness (diffusely) Musculoskeletal: No tenderness Integumentary: No rashes Neurological: Normal speech, Normal tone, Normal affect Lymphatics: No axilla or inguinal lymphadenopathy Laboratory Data (last 24 hrs) 12/17/18 19:54: Sodium 138, Potassium 3.8, BUN 4 L, Creatinine 0.63, Glucose 132 H, Total Bilirubin 0.4, AST 25, ALT 61, Alkaline Phosphatase 60 12/17/18 19:54: WBC 18.1 H D, Hgb 13.1, Hct 38.9, Plt Count 277 - Problems (1) HTN (hypertension) Current Visit: Yes Status: Acute Qualifiers: Hypertension type: other secondary hypertension Qualified Code(s): I15.8 - Other secondary hypertension (2) Abdominal wall hematoma Current Visit: Yes Status: Acute Qualifiers: Encounter type: initial encounter Qualified Code(s): S30.1XXA - Contusion of abdominal wall, initial encounter (3) S/P cholecystectomy Current Visit: Yes Status: Acute Conclusions/Impression: The patient has history of HTN and pre-eclampsia during her pregnancies, requiring temporary blood pressure medication. Her BP is also very sensitive to pain. At this point I recommend to continue with strict pain control. Will add PRN Hydralazine to help to control her blood pressure during hospitalization. She may require temporary oral medication if is discharged home soon. Thank you for the consult.
[2018-12-18 06:27] LABS: Absolute Lymphocytes (CBC) 1.5 K/uL (0.7-4.9); Absolute Monocytes 0.6 K/uL (0.1-1.3); Absolute Neutrophil 11.5 K/uL (1.8-8.0); Basophils % 0.4 % (0-1.3); Eosinophils % 0.2 % (0-4.4); Hematocrit 35.8 % (36.0-45.0); Lymphocytes % 11.1 % (15.3-44.8); MPV 9.2 fL (7.6-11.3); Monocytes % 4.4 % (3.3-12.3)
[2018-12-18 07:23] LABS: Urine Appearance CLEAR; Urine Bilirubin NEGATIVE (NEG); Urine Blood NEGATIVE (NEG); Urine Color YELLOW; Urine Glucose NEGATIVE (NEG); Urine Microscopic Reflex NO UMIC; Urine Protein NEGATIVE (NEG); Urine Urobilinogen 0.2 mg/dL (0.2-1.0)
[2018-12-18] MEDS ORDERED: ENOXAPARIN 40 MG/0.4 ML SQ SCH (09:00)
--- NOTE | 2018-12-18 10:12 | RAD REPORT ---
EXAM DESCRIPTION: CT - Abdomen Pelvis W Contrast - 12/17/2018 10:08 pm TECHNIQUE: Axial scans through the abdomen and pelvis with intravenous contrast including multiplana r computer reformations. Multi phase data sets. Total Dose Length Product: 1723. This exam was perfor med according to our departmental dose-optimization program, which includes automated exposure contro l, adjustment of the mA and/or kV according to patient size and/or use of iterative reconstruction te chnique. COMPARISON: December 04, 2018. CLINICAL HISTORY: Post op janene, today, pain and now leukocytosis. FINDINGS: Liver: Size: 18.3 cm. Parenchyma: Fatty infiltration. Vasculature: Portal and hepatic veins: Normal enhancing portal vein. Spleen: Normal. Gallbladder: Cholecystectomy. Small amount of fluid in the gallbladder fossa. Bile ducts: Common hepatic duct is 8 mm. Pancreas: Pancreas looks intact. Adrenal glands: Normal. Kidneys: Normal. Bladder: Moderately distended urinary bladder is 15 cm. Uterus: Position: Anteverted. Length: 9.1 cm. Adnexa: No adnexal mass. Intestinal Tract: Stomach and duodenum: Unremarkable Small bowel: No evidence for small bowel dilatation. Fluid levels are noted. Large bowel: No evidence for large bowel dilatation. Fluid levels are noted. Appendix: Not well seen. Mesentery and Omentum: Postop pneumoperitoneum. Retroperitoneum: Normal. Vasculature: Aorta: Normal. Iliac arteries: Normal. Free fluid: Small amount of fluid in the subhepatic region and minimally in the pelvis. Musculoskeletal: Musculature, abdominal wall and soft tissues: There is a mass in the anterior abdominal wall on the r ight that measures about 11 cm superior-inferior, 9 cm mediolateral, 5.2 cm anterior posterior with a component of fluid accumulation. With several pockets of gas noted. There is subcutaneous edema. The re is periumbilical thickening and pockets of gas. Skeletal structures: Unremarkable. Lung bases: No evidence for pneumonia or pleural effusion on the lung bases. IMPRESSION: 1. Postop cholecystectomy. Small fluid in the gallbladder fossa. Postoperative pneumoper itoneum. Small amount of fluid in the abdomen and pelvis. 2. Mass in the right anterior abdominal wall and fluid with pockets of gas consistent with hematoma p otentially infected hematoma. 3. Subcutaneous edema in the abdominal wall and periumbilical region that may be in part related to t he laparoscopic procedure. 4. Distended urinary bladder. Discussed findings with Dr. Pedroza at 10:00 PM. Electronically signed by: Dragan Dsouza MD 12/17/2018 10:02 PM EXECUTIVE ADMINISTRATIVE ASSISTANT Due to temporary technical issues with the PACS/Fluency reporting system, reports are being signed by the in house radiologist as a courtesy to ensure prompt reporting. The interpreting radiologist is f ully responsible for the content of the report.
[2018-12-18] MEDS: MORPHINE 2 MG/ML SYR IV PRN ×2 (10:35→16:48)
[2018-12-18 16:44] VITALS: BP 124/75; TEMP 98.6
[2018-12-18] MEDS ORDERED: PIPER/TAZO/NS 3.375gm 3.375 GM/100 ML BAG IVPB SCH (17:00)
--- NOTE | 2018-12-18 18:15 | PN ---
Date of Progress Note: 12/18/2018 History: The patient is seen and examined. Chart reviewed and case discussed with RN. The patient still having significant amount of pain. Nausea seems to have improved. Medications: List reviewed. Physical Examination: Vital Signs: Temperature 98.4, heart rate 82, blood pressure 128/82, respirations 13, O2 98% on room air. General: Awake, alert, oriented x3, ill-appearing female in some mild distress. Obese, BMI 33. CV: S1, S2. Regular rate and rhythm. Peripheral pulses present. Respiratory: Moving air well bilaterally. No wheezing or stridor. Gastrointestinal: Abdomen is distended. Tenderness to palpation around the incision site. The anna marie l sounds are hypoactive. Voluntary guarding is present. No rebound or rigidity. Extremities: No clubbing, cyanosis, or edema. Neuro: Cranial nerves 2-12 intact grossly. No focal neurological deficit. Speech is normal. Laboratory Data: WBC 13.7, H and H 12.5 and 35.8, platelets 283, neutrophils 83%. Assessment: A 33-year-old female with: 1.Abdominal wall hematoma with infection, initial encounter. We will initiate IV antibiotics. The patient came in with a WBC count of 18,000 with left shift. No fevers. 2.Status post cholecystectomy yesterday. Dr. Sage on board. 3.Essential hypertension, labile. We will adjust medications. Continue hydralazine p.r.n. The min ient has a history of preeclampsia and hypertension in . May need to be discharged on home medications for blood pressure control. Plan: As per Dr. Sage. /MODL Voice ID: [id number] Report ID: [id number]
[2018-12-18] MEDS ORDERED: GABAPENTIN 100 MG CAP PO SCH (21:00)
--- NOTE | 2018-12-19 14:21 | P.HP ---
Certification for Inpatient Patient admitted to: Observation Patient will require the following post-hospital care: None Practitioner: I am a practitioner with admitting privileges, knowledge of patient current condition, hospital course, and medical plan of care. Services: Services provided to patient in accordance with Admission requirements found in Title 42 Section 412.3 of the Code of Federal Regulations Patient History Date of Service: 12/17/18 Reason for admission: abdominal pain, HTN History of Present Illness: 33 y/o female with h/o RUQ pain, acute cholecystitis, pancreatitis with intractable nausea. Pt had laparoscopic cholecytectomy this morning but continue with nausea despite use of antiemetic. Pt was "retching" from nausea she felt a pop over the incision and pain. PT state hx of nausea preop occassionaly specifically to Pcn. Pt came to ER still with nausea requiring IV antiemetic. Allergies No Known Allergies Allergy (Verified 12/18/18 00:47) Home Medications: Gabapentin [Neurontin*] 100 mg PO BID 12/16/18 Codeine/APAP [Tylenol #3*] 1 tab PO Q6HP PRN #30 tab 12/17/18 - Past Medical/Surgical History Has patient received pneumonia vaccine in the past: No Diabetic: No -: Chronic back pain -: pre-eclampsia -: hypertension -: lap janene -: c- section - Social History Smoking Status: Never smoker Alcohol use: No CD- Drugs: Yes Caffeine use: No Place of Residence: Home Review of Systems General: As per HPI ENT: Unremarkable Respiratory: Unremarkable Cardiovascular: Unremarkable Gastrointestinal: Nausea, Vomiting, Abdominal Pain, As per HPI Genitourinary: Unremarkable Musculoskeletal: Unremarkable Integumentary: Unremarkable Physical Examination - Vital Signs Temperature: 98.6 F Blood Pressure: 124/75 Pulse: 72 Respirations: 12 Pulse Ox (%): 98 - Physical Exam General: Alert, In no apparent distress, Oriented x3, Cooperative HEENT: PERRLA, EOMI Neck: Supple Respiratory: Normal air movement Cardiovascular: Normal pulses Gastrointestinal: Soft and benign, No rebound, No guarding (intact surgical site , no echymosis, intact incision ) - Studies CT scan , post surgical changes, abd wall hematoma where she felt the pop after "retching" Assessment and Plan - Plan Admit the patient with bowel rest and antiemetic. PT feel better probably pulled a muscle from the straining but self contained. Pt feel a lot better. We will admit for observation. Serial abd exams and advance to diet after emesis control. NPO h/h - Advance Directives Does patient have a Living Will: No Does patient have a Durable POA for Healthcare: No
== END 2018-12-18 19:00 | disposition home or self-care (01) ==
LOC: ER 18:49 → ERHOLD 23:19 → 2ND 23:55
PROVIDERS: ADMIT Surgery; ATTEND Surgery
DX: K91.870 Postprocedural hematoma of a digestive system organ or structure following a digestive system procedure (principal); Y83.8 Other surgical procedures as the cause of abnormal reaction of the patient, or of later complication, without mention of misadventure at the time of the procedure; Y73.3 Surgical instruments, materials and gastroenterology and urology devices (including sutures) associated with adverse incidents; Y92.009 Unspecified place in unspecified non-institutional (private) residence as the place of occurrence of the external cause; I10 Essential (primary) hypertension; E66.9 Obesity, unspecified; Z68.33 Body mass index [BMI] 33.0-33.9, adult
CPT/HCPCS: 36415; 74177; 80053; 81003; 83605; 85025; 96361; 96365; 96375; 99285; G0378; J0360; J0696; J1650; J2270; J2405; J2543; J7030; Q9967

== ENCOUNTER 2023-08-28 08:21 | Emergency (ER) | payer BC, SELFPAY ==
--- OUTSIDE RECORDS SUMMARY | 2023-08-28 08:23 | XMS REPORT | Continuity of Care Document ---
:1985 Author Organization [facility] t Address [address] [place] [address] Care Team Providers Name Role Phone [email or web address] Attending Clinician Unavailable [email or web address] Admitting Clinician Unavailable Problems Condition Condition Condition Status Onset Resolution Last Treating Co mments Source Name Details Category Date Date Treatment Clinician Date Encounter Encounter Problem Active Com mon for for [facility] initial initial - [facility] contracept contracept Me dical ricardo pills ricardo pills [facility] Urinary Urinary Diagnosis Active Commo n tract tract [facility] infection infection - [facility] I without without St hematuria, hematuria, Jessica kes site site Medical unspecifie unspecifie Ce nter d d Allergies, Adverse Reactions, Alerts This patient has no known allergies or adverse reactions. Medications Ordered Filled Start Stop Current Ordering Indication Dosage Frequency Signature Comments Components Source Medication Medication Date Date Medication? Clinician (SIG) Name Name DESMOND LOGAN Yes Jose 1 tablet Comm on 12-30 [facility] 00:00: - [facility] Bactrim DS Bactrim DS 2017- No Jose 1 tablet Common 12-30 [facility] 00:00: 00:00 - [facility] 00 :00 [facility] Yes Jose not Co mmon Vitamins Vitamins Rekhi defined Spi rit - [facility] Labetalol Labetalol Yes Jose 1 tablet Common HCl HCl [facility] - [facility] Procedures This patient has no known procedures. Encounters Start End Encounter Admission Attending Care Care Encounter Source Date/Time Date/Time Type Type Clinicians Facility Department ID 2023-08-09 2023-08-09 Outpatient [email or web address] PRIV PRIV [id number] [facility] 00:00:00 00:00:00 [email or web address]_[email or web address] [id number] Medic al 2017-12-30 2017-12-30 Outpatient Rik Larry [id number] Common 14:15:00 14:15:00 [facility] I Clinic [facility] Results This patient has no known results.
--- NOTE | 2023-08-28 08:36 | ER ---
Nurse's Notes [facility] Name: Sindy Tan Age: 38 yrs Sex: Female : 1985 Arrival Date: 08/28/2023 Time: 08:21 Bed IW1 Private MD: Diagnosis: Periapical abscess without sinus Presentation: 08/28 08:33 Chief complaint: Patient states: L upper jaw tooth pain for 2 weeks, worse for 3 days. vc1 No fever. Coronavirus screen: Vaccine status: Patient reports being unvaccinated. Client denies travel out of the [place] in the last 14 days. At this time, the client does not indicate any symptoms associated with coronavirus-19. Ebola Screen: Patient denies travel to an Ebola-affected area in the 21 days before illness onset. Initial Sepsis Screen: Does the patient meet any 2 criteria? No. Patient's initial sepsis screen is negative. Does the patient have a suspected source of infection? Yes: Other: tooth infection. Risk Assessment: Do you want to hurt yourself or someone else? Patient reports no desire to harm self or others. Onset of symptoms was August 14, 2023. 08:33 Method Of Arrival: Ambulatory vc1 08:33 Acuity: MARIBEL 5 vc1 Triage Assessment: 08:40 General: Appears in no apparent distress. Behavior is calm, cooperative, appropriate ll1 for age. Pain: Complains of pain in L upper jaw. EENT: Reports pain in left zygomatic area. 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 - Social history:: Smoking status: Patient denies any tobacco usage or history of. Screenin:40 [facility] ED Fall Risk Assessment (Adult) Score/Fall Risk Level 0 - 2 = Low Risk ll1 Oriented to surroundings, Maintained a safe environment, Educated pt \T\ family on fall prevention, incl call for assistance when getting out of bed, Hourly rounding (assess needs \T\ fall precautionary measures) done. Abuse screen: Denies threats or abuse. Nutritional screening: No deficits noted. Tuberculosis screening: No symptoms or risk factors identified. Assessment: 08:42 Reassessment: No changes from previously documented assessment. Patient and/or family ll1 updated on plan of care and expected duration. Pain level reassessed. Patient is alert, oriented x 3, equal unlabored respirations, skin warm/dry/pink. Vital Signs: 08:33 BP 158 / 96; Pulse 69; Resp 16; Temp 98.5; Pulse Ox 100% ; Weight 99.79 kg; Height 5 vc1 ft. 2 in. ; Pain 9/10; 08:33 Body Mass Index 40.24 (99.79 kg, 157.48 cm) vc1 08:33 Pain Scale: Adult vc1 ED Course: 08:23 Patient arrived in ED. mg5 08:23 Елена Wolfe F[facility]-C [facility] kb 08:23 Maged Mahan MD is Attending Physician. kb 08:33 Arm band placed on Patient placed in an exam room, on a stretcher. vc1 08:36 Triage completed. vc1 08:36 Shaina Mandujaon, RN is Primary Nurse. vc1 08:41 Patient has correct armband on for positive identification. Bed in low position. ll1 Provided Education on: n/a. 08:41 No provider procedures requiring assistance completed. Patient did not have IV access ll1 during this emergency room visit. Administered Medications: No medications were administered Medication: 08:42 VIS not applicable for this client. ll1 Outcome: 08:36 Discharge ordered by MD. kb 08:41 Discharged to home ambulatory, ll1 08:41 Condition: stable 08:41 Discharge instructions given to patient, Instructed on discharge instructions, follow up and referral plans. Demonstrated understanding of instructions, follow-up care, Prescriptions given X 1, 08:42 Patient left the ED. ll1 Signatures: Елена Wolfe FNP-C FNP-Ckb Lewis, Lynsay, RN RN ll1 Shaina Mandujano RN RN 1 Nicole Najera mg5 Corrections: (The following items were deleted from the chart) 08:36 08:33 Pulse 69bpm; Resp 16bpm; Pulse Ox 100%; Temp 98.5F; 99.79 kg; Height 5 ft. 2 in.; vc1 BMI: 40.2; Pain 9/10, Adult; vc1
--- NOTE | 2023-08-28 08:37 | EDPHYS ---
Physician Documentation [facility] Name: Sindy Tan Age: 38 yrs Sex: Female : 1985 Arrival Date: 08/28/2023 Time: 08:21 Bed IW1 Private MD: ED Physician Maged Mahan HPI: 08/28 08:33 This 38 yrs old Female presents to ER via Unassigned with complaints of kb Toothache. 08:33 The patient presents with pain, redness, swelling. The problem is located in the upper kb left second bicuspid, upper left first molar and upper left second molar. Onset: The symptoms/episode began/occurred 2 week(s) ago. Duration: The symptoms are continuous, and are steadily getting worse. Modifying factors: The symptoms are alleviated by nothing, the symptoms are aggravated by nothing. Associated signs and symptoms: Pertinent positives: pain, redness in area, swelling. Severity of symptoms: At their worst the symptoms were moderate, in the emergency department the symptoms are unchanged. The patient has not experienced similar symptoms in the past. The patient has not recently seen a physician. Patient is a 38-year-old female who presents for a toothache that started 2 weeks ago to the left upper jaw. States its multiple teeth that have been hurting. Denies fever.. 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 - Social history:: Smoking status: Patient denies any tobacco usage or history of. ROS: 08:34 Constitutional: Negative for fever, chills, and weight loss, kb 08:34 ENT: Positive for Teeth pain 08:34 All other systems are negative, Exam: 08:34 Constitutional: This is a well developed, well nourished patient who is awake, alert, kb and in no acute distress. Head/Face: Normocephalic, atraumatic. Cardiovascular: Regular rate Respiratory: Respirations even and unlabored. No increased work of breathing. Talking in full sentences Skin: Warm, dry with normal turgor. Normal color. MS/ Extremity: Pulses equal, no cyanosis. Neurovascular intact. Full, normal range of motion. Neuro: Awake and alert, GCS 15, oriented to person, place, time, and situation. Moves all extremities. Normal gait. 08:34 ENT: Dental exam: dental caries, gum swelling, that is mild, specifically in the upper left second molar and upper left first molar and upper left second bicuspid, pain, Vital Signs: 08:33 BP 158 / 96; Pulse 69; Resp 16; Temp 98.5; Pulse Ox 100% ; Weight 99.79 kg; Height 5 vc1 ft. 2 in. ; Pain 9/10; 08:33 Body Mass Index 40.24 (99.79 kg, 157.48 cm) vc1 08:33 Pain Scale: Adult vc1 MDM: 08:23 Patient medically screened. kb 08:35 Differential diagnosis: dental caries, gingivitis, dental abscess. Data reviewed: vital kb signs, nurses notes. Counseling: I had a detailed discussion with the patient and/or guardian regarding the historical points, exam findings, and any diagnostic results supporting the discharge/admit diagnosis, the need for outpatient follow up, a dentist, to return to the emergency department if symptoms worsen or persist or if there are any questions or concerns that arise at home. Administered Medications: No medications were administered Disposition Summary: 08/28/23 08:36 Discharge Ordered Notes: Location: Home kb Condition: Stable kb Diagnosis - Periapical abscess without sinus kb Followup: kb - With: Emergency Department - When: As needed - Reason: Worsening of condition Followup: kb - With: Private Physician - When: 2 - 3 days - Reason: Recheck today's complaints, Continuance of care, Re-evaluation by your physician Discharge Instructions: - Discharge Summary Sheet kb - Dental Pain, [id number] kb - Dental Abscess, [id number] kb Forms: - Medication Reconciliation Form kb - Thank You Letter kb - Antibiotic Education kb - Prescription Opioid Use kb - Patient Portal Instructions kb - Leadership Thank You Letter kb Prescriptions: - Augmentin 875-125 mg Oral Tablet - take 1 tablet ORAL route every 12 hours for 10 days; 20 tablet; Refills: 0, kb Product Selection Permitted Addendum: 08/30/2023 20:15 I was immediately available for consultation during this patient's visit. I did not e c2 personally see the patient or guide the patient's care.. Signatures: Елена Wolfe FNP-C FNP-Shaina Mooer RN RN vc1 Maged Mahan MD MD ec2
[2023-08-28 08:56] VITALS: BP 158/96; TEMP 98.5; O2SAT 100
== END 2023-08-28 08:42 | disposition home or self-care (01) ==
LOC: ER 08:21
DX: K04.7 Periapical abscess without sinus (principal)
CPT/HCPCS: 99283

== ENCOUNTER 2025-05-27 09:56 | Emergency (ER) | payer OTHER ==
[2025-05-27] MEDS ORDERED: ONDANSETRON 4 MG/2 ML VIAL ONE (10:29)
[2025-05-27] MEDS ORDERED: MORPHINE 4 MG/ML SYR ONE (10:29)
[2025-05-27] MEDS ORDERED: NA CHLORIDE 0.9% 1,000 ML ONE ×2 (10:29→11:38)
[2025-05-27 10:40] LABS: Absolute Lymphocytes (CBC) 1.2 K/uL (0.7-4.9); Hematocrit 49.1 % (36.0-45.0); Hemoglobin 17.0 g/dL (12.0-15.0); MCH 31.4 pg (27.0-35.0); MCHC 34.6 g/dL (32.0-36.0); MCV 90.8 fL (80-100); MPV 8.5 fL (7.6-11.3); Nucleated RBC Absolute Count 0.0 (0-0); Nucleated Red Blood Cells % 0.0 % (0-0); RBC Red Blood Cell Count 5.41 M/uL (3.86-4.86); White Blood Count 13.20 thou/uL (4.3-10.9)
[2025-05-27 10:44] LABS: Sqamous Epithelial <5 /HPF (None Seen); Urine Culture Reflex Order NOT NEEDED; Urine Microscopic Reflex YN ORDER UMIC; Urine WBC Clump Rare /HPF (None Seen); Urine Yeast (Budding) Trace /HPF (None Seen)
[2025-05-27 10:57] LABS: ALT/SGPT 45.0 U/L (13-56); AST/SGOT 31.0 U/L (15-37); Albumin 4.2 g/dL (3.4-5.0); Albumin/Globulin Ratio 0.9 (1.1-1.8); Alkaline Phosphatase 65.0 U/L (45-117); Anion Gap 6.7 mEq/L (5.0-15.0); BUN Blood Urea Nitrogen 8.0 mg/dL (7-18); Globulin 4.7 g/dL (2.3-3.5); Glucose Level 108.0 mg/dL (74-106); Lipase 72.0 U/L (13-75); Potassium 3.7 mEq/L (3.5-5.1)
[2025-05-27] MEDS ORDERED: CEFTRIAXONE 1000 MG/VIAL ONE (11:38)
[2025-05-27] MEDS ORDERED: NA CHLORIDE 0.9% 100 ML ONE (11:38)
[2025-05-27] MEDS ORDERED: HYDRALAZINE HCL 20 MG/ML VIAL ONE (12:11)
[2025-05-27 12:49] LABS: White Blood Cell Scan OK (OK)
[2025-05-27] MEDS ORDERED: LOSARTAN POTASSIUM 50 MG TABLET ONE (12:49)
[2025-05-27 12:50] LABS: Blood Morphology Comment NOT SEEN (NOT SEEN)
--- NOTE | 2025-05-27 13:21 | ER ---
Nurse's Notes [facility] Name: Sindy Tan Age: 40 yrs Sex: Female : 1985 Arrival Date: 05/27/2025 Time: 09:56 Bed 13 Private MD: Diagnosis: Dehydration;Essential (primary) hypertension Presentation: 05/27 10:19 Chief complaint: Patient states: nausea and vomiting x 3 weeks, taking Wegovy me1 injections for weight loss. 10:19 Coronavirus screen: nausea, vomiting. Ebola Screen: Patient denies travel to an [facility] Ebola-affected area in the 21 days before illness onset. Initial Sepsis Screen: Does the patient meet any 2 criteria? HR > 90 bpm. Does the patient have a suspected source of infection? No. Patient's initial sepsis screen is negative. Risk Assessment: Do you want to hurt yourself or someone else? Patient reports no desire to harm self or others. Onset of symptoms was May 2025. 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 - Infectious Disease History:: Denies. - Social history:: Smoking status: Patient denies any tobacco usage or history of. Screenin:25 [facility] ED Fall Risk Assessment (Adult) History of falling in the last 3 months, me1 including since admission No falls in past 3 months (0 pts) Confusion or Disorientation No (0 pts) Intoxicated or Sedated No (0 pts) Impaired Gait No (0 pts) Mobility Assist Device Used No (0 pt) Altered Elimination No (0 pt) Score/Fall Risk Level 0 - 2 = Low Risk Maintained a safe environment, Provided non-skid footwear, Hourly rounding (assess needs \T\ fall precautionary measures) done. Abuse screen: Denies threats or abuse. Nutritional screening: No deficits noted. Tuberculosis screening: No symptoms or risk factors identified. Assessment: 10:25 General: Appears in no apparent distress. well groomed, well developed, well nourished, me1 Behavior is calm, cooperative, appropriate for age, Reports nausea and vomiting x 3 weeks, taking Wegovy injections for weight loss. Pain: Denies pain. Neuro: Level of Consciousness is awake, alert, obeys commands, Oriented to person, place, time, situation, Appropriate for age. Cardiovascular: Patient's skin is warm and dry. Respiratory: Airway is patent Respiratory effort is even, unlabored, Respiratory pattern is regular, symmetrical. GI: Abdomen is non-distended, Reports nausea, vomiting, since 3 weeks ago. : No signs and/or symptoms were reported regarding the genitourinary system. EENT: No signs and/or symptoms were reported regarding the EENT system. Derm: Skin is intact, is healthy with good turgor, Skin is normal. Musculoskeletal: No signs and/or symptoms reported regarding the musculoskeletal system. Vital Signs: 10:19 BP 145 / 109; Pulse 101; Resp 18 S; Temp 98(O); Pulse Ox 100% on R/A; Weight 85.73 kg aa5 (R); Height 5 ft. 2 in. (R); 10:35 BP 158 / 109 Supine; Pulse 80; Temp 98.7(O); Pulse Ox 100% on R/A; Weight 85.73 kg (R); sa1 Height 5 ft. 2 in. (R); 11:00 BP 169 / 116; Pulse 88; Resp 16; Pulse Ox 98% ; me1 11:51 Pain 7/10; me1 12:00 BP 196 / 130; Pulse 78; Resp 16; Pulse Ox 99% ; me1 12:46 BP 202 / 123; Pulse 115; Resp 19; Pulse Ox 99% ; me1 13:15 BP 163 / 109; Pulse 88; Resp 14; Pulse Ox 98% ; me1 10:35 Body Mass Index 34.57 (85.73 kg, 157.48 cm) sa1 11:51 Pain Scale: Adult me1 13:15 Wei Hadley NP aware of BP. Ok to discharge. me1 ED Course: 09:58 Patient arrived in ED. mr 09:59 Wei Hadley, [facility] 09:59 Raúl Patel DO is Attending Physician. dr5 10:19 Arm band placed on. aa5 10:22 Triage completed. aa5 10:25 Audra Persaud, RN is Primary Nurse. me1 10:25 Patient has correct armband on for positive identification. Bed in low position. Call me1 light in reach. Side rails up X2. Provided Education on: POC. Verbalized understanding.. Client placed on continuous cardiac and pulse oximetry monitoring. NIBP monitoring applied. Pulse ox on. NIBP on. 10:25 No provider procedures requiring assistance completed. me1 10:28 Inserted saline lock: 20 gauge in right antecubital area, using aseptic technique. sa1 Blood collected. Flushed with 10 mL NS. 10:28 Initial lab(s) drawn, by me, sent to lab. sa1 10:36 Inserted saline lock:. me1 13:37 IV discontinued, intact, bleeding controlled, No redness/swelling at site. Pressure me1 dressing applied. Administered Medications: 10:36 Drug: Ondansetron IVP 4 mg IVP once; over 2 minutes Route: IVP; Site: right antecubital;me1 11:49 Follow up: Response: No adverse reaction; Nausea is decreased me1 10:36 Drug: NS 0.9% IV 1000 ml IV at 1 bolus Per protocol; to be given as a bolus over 60 me1 minutes Route: IV; Rate: 1 bolus; Site: right antecubital; 11:49 Follow up: Response: No adverse reaction; IV Status: Completed infusion; IV Intake: me1 1000ml 10:36 Drug: morphine IVP or IV 4 mg IVP once over 4 mins Route: IVP; Infused Over: 4 mins; me1 Site: right antecubital; 11:51 Follow up: Pain 7/10 Adult; Response: No adverse reaction; Pain is decreased me1 11:49 Drug: NS 0.9% IV 1000 ml IV at 1000 ml once; to be given as a bolus over 60 minutes me1 Route: IV; Rate: 1000 ml; Site: right antecubital; 12:51 Follow up: Response: No adverse reaction; IV Status: Completed infusion me1 11:49 Drug: Rocephin IV 1 grams IV at per protocol once; Given slow IV push per pharmacy me1 instructions Route: IV; Rate: per protocol; Site: right antecubital; 12:16 Follow up: Response: No adverse reaction; IV Status: Completed infusion me1 11:49 Drug: Droperidol IVP 1.25 mg IVP once Route: IVP; Site: right antecubital; me1 12:16 Follow up: Response: No adverse reaction; Marked relief of symptoms me1 12:15 Drug: hydrALAZINE IVP 10 mg IVP once Route: IVP; Site: right antecubital; me1 12:51 Follow up: Response: No adverse reaction; Blood pressure is unchanged me1 12:51 Drug: Losartan PO 50 mg PO once Route: PO; me1 13:28 Follow up: Response: No adverse reaction; Blood pressure is unchanged me1 Medication: 10:25 VIS not applicable for this client. me1 Intake: 11:49 IV: 1000ml; Total: 1000ml. me1 Outcome: 13:20 Discharge ordered by MD. dr5 13:37 Discharged to home ambulatory, with family, me1 13:37 Condition: stable 13:37 Discharge instructions given to patient, family, Instructed on discharge instructions, follow up and referral plans. medication usage, Demonstrated understanding of instructions, follow-up care, medications, Prescriptions given X 1, 13:38 Patient left the ED. me1 Signatures: Lakeisha Peralta, Reg Reg mr CrossSelena, RN RN aa5 Audra Persaud, ANDREW RN me1 Sultan Josie 1 Wei Hadley, CAR DUMPER OPERATOR HELPER-C CAR DUMPER OPERATOR HELPER-Cdr5 Corrections: (The following items were deleted from the chart) 10:25 10:19 Chief complaint: Patient states: nausea and vomiting x 3 weeks, taking Wegovy me1 injections for weight loss. aa5
--- NOTE | 2025-05-27 13:21 | EDPHYS ---
Physician Documentation [facility] Name: Sindy Tan Age: 40 yrs Sex: Female : 1985 Arrival Date: 05/27/2025 Time: 09:56 Bed 13 Private MD: ED Physician Raúl Patel HPI: 05/27 10:49 This 40 yrs old Female presents to ER via Ambulatory with complaints of dr5 Vomiting, Dehydrated. 10:49 The patient presents to the emergency department with nausea, that is moderate, dr5 vomiting, 2 times today. Onset: The symptoms/episode began/occurred 3 week(s) ago. Possible causes: Wegovy injection. The patient has experienced similar episodes in the past, several times. Patient is a 40-year-old female with history of hypertension and chronic back pain coming in with approximately 3 weeks of nausea vomiting. Patient reports that she took Wegovy prior to symptoms starting and has been nauseous since. Patient reports that she has been to the urgent care several times as well as the ER. Patient has been given antiemetics and has Zofran and promethazine with her. Patient states that she is having difficulty eating food and keeping fluids down. Patient denies chest pain, diarrhea, constipation, fever. Patient does report vomiting bile and stomach acid.. 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 - Infectious Disease History:: Denies. - Social history:: Smoking status: Patient denies any tobacco usage or history of. ROS: 10:49 Constitutional: as per hpi dr5 Exam: 10:49 Constitutional: This is a well developed, well nourished patient who is awake, alert, dr5 and in no acute distress. Head/Face: Normocephalic, atraumatic. Eyes: Pupils equal round and reactive to light, extra-ocular motions intact. Lids and lashes normal. Conjunctiva and sclera are non-icteric and not injected. Cornea within normal limits. Periorbital areas with no swelling, redness, or edema. Neck: Trachea midline, no thyromegaly or masses palpated, and no cervical lymphadenopathy. Supple, full range of motion without nuchal rigidity, or vertebral point tenderness. No Meningismus. Chest/axilla: Normal chest wall appearance and motion. Nontender with no deformity. No lesions are appreciated. Cardiovascular: Regular rate and rhythm with a normal S1 and S2. Normal PMI, no JVD. No pulse deficits. Respiratory: Lungs have equal breath sounds bilaterally, clear to auscultation. No rales, rhonchi or wheezes noted. No increased work of breathing, no retractions or nasal flaring. Back: No spinal tenderness. No costovertebral tenderness. Full range of motion. Skin: Warm, dry with normal turgor. Normal color with no rashes, no lesions, and no evidence of cellulitis. MS/ Extremity: Pulses equal, no cyanosis. Neurovascular intact. Full, normal range of motion. Neuro: Awake and alert, GCS 15, oriented to person, place, time, and situation. Cranial nerves II-XII grossly intact. Motor strength 5/5 in all extremities. Sensory grossly intact. Cerebellar exam normal. Normal gait. 10:49 Abdomen/GI: Inspection: abdomen appears normal, Bowel sounds: normal, Palpation: mild abdominal tenderness, in the epigastric area, Vital Signs: 10:19 BP 145 / 109; Pulse 101; Resp 18 S; Temp 98(O); Pulse Ox 100% on R/A; Weight 85.73 kg aa5 (R); Height 5 ft. 2 in. (R); 10:35 BP 158 / 109 Supine; Pulse 80; Temp 98.7(O); Pulse Ox 100% on R/A; Weight 85.73 kg (R); sa1 Height 5 ft. 2 in. (R); 11:00 BP 169 / 116; Pulse 88; Resp 16; Pulse Ox 98% ; me1 11:51 Pain 7/10; me1 12:00 BP 196 / 130; Pulse 78; Resp 16; Pulse Ox 99% ; me1 12:46 BP 202 / 123; Pulse 115; Resp 19; Pulse Ox 99% ; me1 13:15 BP 163 / 109; Pulse 88; Resp 14; Pulse Ox 98% ; me1 10:35 Body Mass Index 34.57 (85.73 kg, 157.48 cm) 1 11:51 Pain Scale: Adult me1 13:15 Wei Hadley NP aware of BP. Ok to discharge. me1 MDM: 09:59 Medical Screening Exam initiated dr5 10:49 ED course: Concerns for dehydration and electrolyte abnormality. Will get blood work to dr5 rule out anemia, acute kidney injury, and pancreatitis possibly from Wegovy injection. Will rehydrate patient and give antiemetics as well as check a urine. 16:26 Differential diagnosis: viral gastroenteritis, gastroenteritis, Urinary tract dr5 infection, electrolyte abnormality. Data reviewed: vital signs, nurses notes, lab test result(s), CBC, white blood cell count, hemoglobin, hematocrit, platelets, electrolytes, sodium, potassium, chloride, serum bicarbonate, BUN, creatinine, serum glucose. Consideration of Admission/Observation Escalation of care including admission/observation considered. Admission considered if patient was p.o. intolerant.. I considered the following discharge prescriptions or medication management in the emergency department I discussed and recommended Over The Counter medications, Medications were administered in the Emergency Department. See MAR. Historians other than the Patient: Parent: Mother. Care significantly affected by the following chronic conditions: Hypertension. Care significantly affected by the following Social Determinants of Health: Poor access to healthcare and/or lack of insurance, Poor access to transportation, Problems related to employment. Counseling: I had a detailed discussion with the patient and/or guardian regarding the historical points, exam findings, and any diagnostic results supporting the discharge/admit diagnosis, the presence of at least one elevated blood pressure reading (>120/80) during this emergency department visit, lab results, the need for outpatient follow up, for definitive care, a family practitioner, to return to the emergency department if symptoms worsen or persist or if there are any questions or concerns that arise at home. Medication response: Rocephin, losartan, NS. Response to treatment: the patient's symptoms have resolved after treatment. Special discussion: I discussed with the patient/guardian in detail that at this point there is no indication for admission to the hospital. It is understood, however, that if the symptoms persist or worsen the patient needs to return immediately for re-evaluation. Based on the history and exam findings, there is no indication for further emergent testing or inpatient evaluation. I discussed with the patient/guardian the need to see the primary care provider for further evaluation of the symptoms. ED course: Patient currently taking hydralazine 10 mg, losartan 50 mg, and amlodipine. Patient's blood pressure has been elevated due to not be able to take medicine. Hydralazine IV given in the ER as well as losartan after patient was feeling better. All labs printed and given to patient take to primary care doctor. Recommended not taking Wegovy until patient show much better. All questions answered. Strict ER precautions given. 05/27 10:07 Order name: CBC with Diff; Complete Time: 12:50 dr5 05/27 10:07 Order name: CMP; Complete Time: 10:59 dr5 05/27 10:07 Order name: Lipase; Complete Time: 10:59 dr5 05/27 10:15 Order name: UA Rfx Shivam Cult if indicated; Complete Time: 10:46 dr5 05/27 10:47 Order name: CBC Smear Scan; Complete Time: 12:50 EDMS 05/27 10:07 Order name: IV Saline Lock; Complete Time: 10:36 dr5 05/27 10:07 Order name: Labs collected and sent; Complete Time: 10:36 dr5 Administered Medications: 10:36 Drug: Ondansetron IVP 4 mg IVP once; over 2 minutes Route: IVP; Site: right antecubital;me1 11:49 Follow up: Response: No adverse reaction; Nausea is decreased me1 10:36 Drug: NS 0.9% IV 1000 ml IV at 1 bolus Per protocol; to be given as a bolus over 60 me1 minutes Route: IV; Rate: 1 bolus; Site: right antecubital; 11:49 Follow up: Response: No adverse reaction; IV Status: Completed infusion; IV Intake: me1 1000ml 10:36 Drug: morphine IVP or IV 4 mg IVP once over 4 mins Route: IVP; Infused Over: 4 mins; me1 Site: right antecubital; 11:51 Follow up: Pain 7/ Adult; Response: No adverse reaction; Pain is decreased me1 11:49 Drug: NS 0.9% IV 1000 ml IV at 1000 ml once; to be given as a bolus over 60 minutes me1 Route: IV; Rate: 1000 ml; Site: right antecubital; 12:51 Follow up: Response: No adverse reaction; IV Status: Completed infusion me1 11:49 Drug: Rocephin IV 1 grams IV at per protocol once; Given slow IV push per pharmacy me1 instructions Route: IV; Rate: per protocol; Site: right antecubital; 12:16 Follow up: Response: No adverse reaction; IV Status: Completed infusion me1 11:49 Drug: Droperidol IVP 1.25 mg IVP once Route: IVP; Site: right antecubital; me1 12:16 Follow up: Response: No adverse reaction; Marked relief of symptoms me1 12:15 Drug: hydrALAZINE IVP 10 mg IVP once Route: IVP; Site: right antecubital; me1 12:51 Follow up: Response: No adverse reaction; Blood pressure is unchanged me1 12:51 Drug: Losartan PO 50 mg PO once Route: PO; me1 13:28 Follow up: Response: No adverse reaction; Blood pressure is unchanged me1 Disposition: 19:23 I was immediately available on-site in the Emergency Department for consultation in the ms3 care of the patient. Disposition Summary: 05/27/25 13:20 Discharge Ordered Notes: Location: Home dr5 Condition: Stable dr5 Diagnosis - Dehydration dr5 - Essential (primary) hypertension dr5 Followup: dr5 - With: Emergency Department - When: As needed - Reason: Worsening of condition Followup: dr5 - With: Private Physician - When: 1 - 2 days - Reason: Recheck today's complaints, Continuance of care, Re-evaluation by your physician Discharge Instructions: - Discharge Summary Sheet dr5 - Dehydration, Adult dr5 - Hypertension, Adult dr5 - Urinary Tract Infection, Adult dr5 Forms: - Medication Reconciliation Form dr5 - Antibiotic Education dr5 - Patient Portal Instructions dr5 - Leadership Thank You Letter dr5 Prescriptions: - Cephalexin 500 mg Oral capsule - take 1 capsule ORAL route every 12 hours for 7 days; 14 capsule; Refills: 0, dr5 Product Selection Permitted Critical care time excluding procedures: 16:26 Critical care time: Bedside Care: 25 minutes, Consultation: 5 minutes, Family dr5 Intervention: 4 minutes. Total time: 34 minutes Signatures: Dispatcher [employer] Selena Dickey, RN RN aa5 Raúl Patel, DO ms3 Audra Persaud RN RN me1 Wei Hadley, EQUIPMENT MECHANIC SPECIALIST-C EQUIPMENT MECHANIC SPECIALIST-Cdr5
[2025-05-27 14:03] VITALS: TEMP 98.7
[2025-05-27 14:16] VITALS: BP 163/109; O2SAT 98
== END 2025-05-27 13:38 | disposition home or self-care (01) ==
LOC: ER 09:56
DX: E86.0 Dehydration (principal); I10 Essential (primary) hypertension
CPT/HCPCS: 96365; 96361; 85025; 81001; 36415; 83690; 80053; 96375; 99284; J0360; J2405; J1790; J7030 ×2; J0696